=== PATIENT | male | born 1975 | race Two or more races ===

== ENCOUNTER 2016-10-19 22:27 | Emergency (ER) | payer SELFPAY ==
[~2016-10-19] VITALS: Ht 175.3 cm; Wt 79.4 kg
[2016-10-20 01:21] VITALS: BP 166/108
== END 2016-10-20 01:21 | disposition short-term general hospital (02) ==
LOC: ED 22:27
DX: S61.211A Laceration without foreign body of left index finger without damage to nail, initial encounter (principal); X58.XXXA Exposure to other specified factors, initial encounter; Y93.89 Activity, other specified; Y99.8 Other external cause status; Y92.89 Other specified places as the place of occurrence of the external cause
CPT/HCPCS: 90715; J3490; Q0092